=== PATIENT | female | born 1995 | race Caucasian/White ===

== ENCOUNTER → 2023-08-10 13:10 | Outpatient (REF) | payer BC, SELFPAY | LOC: PNTC 13:10 | PROVIDERS: ATTENDING PHYSICIAN Obstetrics & Gynecology | DX: O98.519 Other viral diseases complicating pregnancy, unspecified trimester (principal) | CPT/HCPCS: 76816 ==

== ENCOUNTER 2023-10-05 19:12 | Inpatient (IN) | payer BC, SELFPAY ==
[2023-10-05 19:56] VITALS: BP 105/75; BMI 22.7
[2023-10-05] MEDS: LR 1000 IV (20:00)
[2023-10-05 20:14] LABS: % Basophils 0.3 % (0-2); % Eosinophils 1.7 % (0-6); % Immature Granulocytes 0.7 % (0-0.5); % Lymphocytes 29.1 % (20.5-51.1); % Monocytes 7.2 % (1.7-9.3); Absolute Eosinophils 0.2 10^3/uL (0-0.7); Absolute Immature Granulocytes 0.1 10^3/uL (0-0.05); Absolute Lymphocytes 2.6 10^3/uL (1.2-3.4); Absolute Monocytes 0.7 10^3/uL (0.1-0.6); Absolute Neutrophils 5.5 10^3/uL (1.4-6.5); Hematocrit 30.6 % (37.0-47.0); Hemoglobin 10.5 g/dL (12.0-16.0); Mean Corp Hgb Conc. 34.3 g/dL (33.0-37.0); Mean Corpuscular Hgb 27.8 pg (27.0-31.0); Mean Platelet Volume 10.9 fL (7.4-10.4); Nucleated Red Blood Cells % 0 %; Platelet Count 286 10^3/uL (130-400); Red Blood Cell Count 3.78 10^6/uL (4.20-5.40); Red Cell Dist. Width 13.2 % (11.5-14.5); White Blood Cell Count 9.1 10^3/uL (4.8-10.8)
[2023-10-05] MEDS: CYTOTEC 25 MICROGRAM VAG (21:24)
[2023-10-06] MEDS: CYTOTEC 50 MICROGRAM PO (01:30)
[2023-10-06] MEDS: SUBLIMAZE 100 MCG EPIDURAL (02:24)
[2023-10-06] MEDS: FENTANYL/BUPIVACAINE 100 EPIDURAL (02:24)
[2023-10-06] MEDS: CYTOTEC PO (03:06)
[2023-10-06] MEDS: TYLENOL 650 MG PO ×3 (08:24→18:33)
[2023-10-06] MEDS: MOTRIN 600 MG PO ×2 (15:10→22:40)
[2023-10-07] MEDS: MOTRIN 600 MG PO (06:05)
[2023-10-07 06:22] LABS: Hematocrit 30.7 % (37.0-47.0); Hemoglobin 10.2 g/dL (12.0-16.0)
[2023-10-07 14:47] LABS: Syphilis/T. pallidum Ab Reflex Negative (Negative)
== END 2023-10-07 15:26 | disposition home or self-care (01) | DRG 807 ==
LOC: LDRP 19:12
PROVIDERS: ADMITTING PHYSICIAN Obstetrics & Gynecology
PROC: 3E0P7VZ Introduction of Hormone into Female Reproductive, Via Natural or Artificial Opening (ICD-10-PCS; 2023-10-05)
PROC: 0KQM0ZZ Repair Perineum Muscle, Open Approach (ICD-10-PCS; 2023-10-06)
PROC: 0UQMXZZ Repair Vulva, External Approach (ICD-10-PCS; 2023-10-06)
PROC: 10E0XZZ Delivery of Products of Conception, External Approach (ICD-10-PCS; 2023-10-06)
DX: O48.0 Post-term pregnancy (principal); Z37.0 Single live birth; Z3A.40 40 weeks gestation of pregnancy; O70.1 Second degree perineal laceration during delivery; O71.82 Other specified trauma to perineum and vulva; O76 Abnormality in fetal heart rate and rhythm complicating labor and delivery
CPT/HCPCS: 36415; 85014; 85018; 85025; 86780; 86850; 86900; 86901

== ENCOUNTER 2024-05-12 18:24 | Emergency (ER) | payer BC, SELFPAY ==
[2024-05-12 18:29] VITALS: BP 129/87
[2024-05-12 19:02] VITALS: BMI 20.4
[2024-05-12 19:08] VITALS: BP 122/7; BP 122/77
--- NOTE | 2024-05-12 19:39 | ED.GENMED ---
History of Present Illness
General
Chief Complaint: Skin Surface Trauma
Source: patient
Exam Limitations: none
Time Seen by Provider: 05/12/24 19:03
Nursing documentation reviewed up to this point in time: agreed with
History of Present Illness
History of Present Illness:
29-year-old female presenting to the emergency department today with concerns of right pointer finger laceration that occurred from a kitchen knife prior to arrival. Denies additional injuries no numbness or weakness.
Review of Systems
Review of Systems
Allergies reviewed?: Yes
All Other Systems: ROS reviewed and negative except as documented in HPI and ROS
Phy Exam
Physical Exam
Physical Exam:
GENERAL: Alert , in no apparent distress
EYE: pupils equal and reactive
NECK: Supple, no significant adenopathy.
ENT: o/p clr, mmm.
CARDIAC: Regular rate and rhythm .
LUNGS: Clear breath sounds bilaterally, no acute respiratory distress, no wheezes/rales/rhonchi
ABDOMEN: Soft, without focal tenderness, no r/g, no cvat
NEUROLOGICAL: Alert and oriented, no focal neuro deficits
SKIN: Superficial laceration to the right pointer finger on the radial aspect between the DIP and PIP. 1.5 cm in length. Warm and dry, skin intact.
MUSCULOSKELETAL: No edema, well perfused.
PSYCH: Normal and appropriate interaction.
Course
Vital Signs
Initial and Last Documented VS:
Initial Vital Signs
Temp Pulse Resp BP Pulse Ox
98.2 F 93 18 129/87 100
05/12/24 18:29 05/12/24 18:29 05/12/24 18:29 05/12/24 18:29 05/12/24 18:29
Last Documented Vital Signs
Temp Pulse Resp BP Pulse Ox
98.2 F 83 18 122/77 100
05/12/24 18:29 05/12/24 19:08 05/12/24 19:08 05/12/24 19:08 05/12/24 19:08
Procedures
Laceration Closure
Right Medial Radial Second Finger:
Status of Wound: clean
Size of Wound in cm: 1.5
Description of Wound Edges: sharp
Preparation: cleaned with saline
Anesthesia: 1% Lidocaine
Revision/Debridement: routine- no revision
Wound exploration: explored to base- no FB
Type of Closure: single layer closure
Skin Closure Material: 5-0 chromic gut
Number of sutures: 2
MDM/Problems Addressed
MDM/Problems Addressed:
29-year-old female presenting for laceration to her finger. This was cleaned closed with 2 stitches. Otherwise neurovascular intact no emergent findings no evidence of likely bone injury. Stable for discharge. Return precautions given. Patient
did have a tetanus shot 2 years ago.
*Critical Care Note
Total Time (30-74mins, 75-104mins- exclusive of procedures): Not Applicable
ED Attending Note
-
Portions of this chart may have been created with voice recognition software.� Occasional wrong word or��sound alike� substitutions may have occurred due to the inherent limitations of voice recognition software.
Discharge Plan
Departure
Patient Disposition: Home (Routine Discharge)
Date of Disposition: 05/12/24
Time of Disposition: 19:40
Patient with high blood pressure during this ER visit?: No
Condition: Good
Covid-19: Not Applicable
Discharge Problem:
Finger laceration
Instructions: Laceration Repair With Stitches (DC)
Prescriptions:
No Action
prenat.vits,angeles,kta-psil-uwsnl Tablet
1 tab PO DAILY
ibuprofen 600 mg Tablet
600 mg PO Q6HPRN PRN (Reason: moderate pain/cramps) Qty: 90 0RF
Referrals:
NONE,* [Family Provider] -
Activity Restrictions/Additional Instructions:
You came to the emergency department today with concerns of a finger laceration. This was cleaned and closed with 2 dissolving stitches. Please keep the area clean covered and return for any worsening, new or concerning symptoms.
Interventions
Interventions:
*Risk Screen - Suicide Last Done: 05/12/24 18:30
*General Assessment Last Done: 05/12/24 18:30
*Neglect/Abuse Screening Last Done: 05/12/24 18:30
*ED- Fall Risk Assessment Last Done: 05/12/24 19:02
*ED COVID-19 Vaccine History Last Done: 05/12/24 18:30
*Nursing Disposition Last Done: 05/12/24 19:46
ED-Skin Assessment Last Done: 05/12/24 19:02
Discharge Date and Time
Discharge Date/Time: 05/12/24 19:46
Print Language: ERITREAN
== END 2024-05-12 19:46 | disposition home or self-care (01) ==
LOC: EMR 18:24
PROVIDERS: EMERGENCY PHYSICIAN Emergency Medicine
DX: S61.210A Laceration without foreign body of right index finger without damage to nail, initial encounter (principal); W26.0XXA Contact with knife, initial encounter
CPT/HCPCS: 12001; 99282

== ENCOUNTER 2025-02-18 07:47 | Inpatient (IN) | payer BC, SELFPAY ==
[2025-02-18] MEDS: LR 1000 IV (08:15)
[2025-02-18 08:20] VITALS: BP 112/76; BMI 21.3
[2025-02-18 08:35] LABS: Hematocrit 32.1 % (37.0-47.0); Hemoglobin 10.5 g/dL (12.0-16.0); Mean Corp Hgb Conc. 32.7 g/dL (33.0-37.0); Mean Corpuscular Volume 82.1 fL (81.0-99.0); Nucleated Red Blood Cells % 0 %; Platelet Count 330 10^3/uL (130-400); Red Cell Dist. Width 13.2 % (11.5-14.5)
[2025-02-18] MEDS: PITOCIN 30 UNITS/NSS 500 ML IV (08:55)
[2025-02-18] MEDS: FENTANYL/BUPIVACAINE 100 EPIDURAL (11:14)
[2025-02-18] MEDS: SUBLIMAZE 100 MCG EPIDURAL (11:14)
[2025-02-18] MEDS: MOTRIN 600 MG PO (15:37)
[2025-02-18] MEDS: COLACE 100 MG PO (20:01)
[2025-02-19] MEDS: MOTRIN 600 MG PO ×2 (01:27→08:14)
[2025-02-19 05:50] LABS: Hematocrit 25.5 % (37.0-47.0); Hemoglobin 8.6 g/dL (12.0-16.0)
[2025-02-19] MEDS: FEOSOL 325 MG PO (08:14)
[2025-02-19] MEDS: COLACE 100 MG PO (08:14)
[2025-02-19] MEDS: PRENATAL PLUS 1 TABLET PO (08:14)
[2025-02-20 11:23] LABS: Syphilis/T. pallidum Ab Reflex Negative (Negative)
== END 2025-02-19 15:16 | disposition home or self-care (01) | DRG 807 ==
LOC: LDRP 07:47
PROVIDERS: ADMITTING PHYSICIAN Obstetrics & Gynecology
PROC: 0KQM0ZZ Repair Perineum Muscle, Open Approach (ICD-10-PCS; 2025-02-18)
PROC: 10E0XZZ Delivery of Products of Conception, External Approach (ICD-10-PCS; 2025-02-18)
DX: O70.1 Second degree perineal laceration during delivery (principal); Z37.0 Single live birth; Z3A.39 39 weeks gestation of pregnancy
CPT/HCPCS: 36415; 85014; 85018; 85025; 86780; 86850; 86900; 86901